=== PATIENT | male | born 1990 | race Asian ===

== ENCOUNTER 2021-10-10 16:56 | Emergency (ER) | payer OTHER ==
[~2021-10-10] VITALS: Ht 175.3 cm; Wt 117.9 kg
[2021-10-10 17:01] VITALS: BP 145/77
--- NOTE | 2021-10-10 17:03 | NUR ---
PT TO WAIT IN LOBBY.
--- NOTE | 2021-10-10 17:19 | NUR ---
31 Y/O MALE C/O PENILE PAIN 03/19 X3DAY. PT STATES +DYSURIA, DENIES HEMATURIA, DENIES DISCHARGE. DENIES FEVER/CHILLS. DENIES N/V. DENIES PMH ALLERGIES: SULFA
--- NOTE | 2021-10-10 18:14 | NUR ---
URINE SAMPLE HANDED TO TRINI ANDRES
--- NOTE | 2021-10-10 18:18 | NUR ---
Jax bonilla in [facility] - 10/10/21 at 1824 by MEDALANIS Female Financial Services Counselor accompanied female patient for PENILE Exam.
[2021-10-10] MEDS ORDERED: LOTC TP (18:19)
[2021-10-10] MEDS ORDERED: PYR100 PO (18:19)
[2021-10-10] MEDS ORDERED: CEPH-588 PO (18:19)
[2021-10-10 18:34] VITALS: BP 136/72
--- NOTE | 2021-10-10 18:34 | NUR ---
Patient discharged with v/s stable. Written and verbal after care instructions given FOR BALANITIS and explained. Patient alert, oriented and verbalized understanding of instructions. Ambulatory with steady gait. All questions addressed prior to discharge. ID band removed. Patient advised to follow up with PMD. Rx of KEFLEX, LOTRIMIN, AND PYRIDIUM given. Patient educated on indication of medication including possible reaction and side effects. Opportunity to ask questions provided and answered.
== END 2021-10-10 18:34 | disposition home or self-care (01) ==
LOC: MED 16:56
DX: N48.1 Balanitis (principal); Z79.899 Other long term (current) drug therapy; Z79.2 Long term (current) use of antibiotics; Z88.2 Allergy status to sulfonamides
CPT/HCPCS: 36415; 81002; 87491; 99283

== ENCOUNTER 2021-10-17 15:55 | Emergency (ER) | payer OTHER ==
[~2021-10-17] VITALS: Ht 180.3 cm; Wt 120.7 kg
[~2021-10-17 15:55] MED LIST: CEPH-588 PO; LOTC TP; PYR100 PO
[2021-10-17 16:00] VITALS: BP 125/82
--- NOTE | 2021-10-17 16:00 | NUR ---
PT TO AWAIT IN LOBBY
--- NOTE | 2021-10-17 16:29 | NUR ---
LAB TO DRAW LABS
[2021-10-17 16:44] LABS: BASOPHILS # (AUTO) 0.1 K/uL (0.00-0.22); BASOPHILS % (AUTO) 1.3 % (0.0-2.0); EOSINOPHILS # (AUTO) 0.1 K/uL (0-0.4); EOSINOPHILS % (AUTO) 2.3 % (0.0-4.0); HEMATOCRIT 43.6 % (36-52); HEMOGLOBIN 15.1 g/dL (12.0-18.0); LYMPHOCYTES % (AUTO) 32.3 % (20.5-51.1); MEAN CORPUSCULAR HEMOGLOBIN 31 pg (27-31); MEAN CORPUSCULAR HGB CONC 35 g/dL (33-37); MEAN CORPUSCULAR VOLUME 89.7 fL (80-94); MONOCYTES # (AUTO) 0.8 K/uL (0.8-1.0); MONOCYTES % (AUTO) 13.3 % (1.7-9.3); NEUTROPHILS # (AUTO) 3.1 K/uL (1.8-7.7); NEUTROPHILS % (AUTO) 50.8 % (42.2-75.2); PLATELET COUNT (AUTO) 185 K/uL (140-450); RED BLOOD CELL COUNT(AUTO) 4.86 MIL/uL (4.20-6.10); RED CELL DISTRIBUTION WIDTH 13.1 % (11.6-13.7); WHITE BLOOD COUNT (AUTO) 6.2 K/uL (4.8-10.8)
[2021-10-17 17:05] LABS: ALBUMIN 4.2 g/dL (3.4-5.0); ANION GAP 12.8 (8-16); CARBON DIOXIDE 29.3 mmol/L (21-32); CREATININE 1.1 mg/dL (0.6-1.3); POTASSIUM 4.1 mmol/L (3.5-5.1); TOTAL BILIRUBIN 0.4 mg/dL (0.0-1.0)
--- NOTE | 2021-10-17 17:08 | NUR ---
PT AMBULATED TO BED 04, STEADY GAIT
--- NOTE | 2021-10-17 17:39 | NUR ---
31/M BIB SELF WITH C/O BLOODY STOOL INTERMITTENTLY X1 MONTH. PATIENT STATES BLOOD HAS INCREASED OVER THE LAST TWO DAYS. PATIENT DENIES ABDOMINAL PAIN, N/V/D, VOMITING OR ANY OTHER COMPLAINTS AT THIS TIME.
[2021-10-17] MEDS ORDERED: DOCU-474 PO (17:40)
[2021-10-17 17:48] VITALS: BP 125/82
--- NOTE | 2021-10-17 17:48 | NUR ---
Patient discharged with v/s stable. Written and verbal after care instructions given and explained. Patient alert, oriented and verbalized understanding of instructions. Ambulatory with steady gait. All questions addressed prior to discharge. ID band removed. Patient advised to follow up with PMD. Rx of DULCOLAX given. Patient educated on indication of medication including possible reaction and side effects. Opportunity to ask questions provided and answered.
== END 2021-10-17 17:48 | disposition home or self-care (01) ==
LOC: MED 15:55
DX: K60.2 Anal fissure, unspecified (principal); K59.00 Constipation, unspecified
CPT/HCPCS: 36415; 80053; 85025; 99283

== ENCOUNTER 2021-11-13 15:29 | Emergency (ER) | payer OTHER ==
[~2021-11-13] VITALS: Ht 175.3 cm; Wt 119.7 kg
[~2021-11-13 15:29] MED LIST changes: +DOCU-474 PO
[2021-11-13 15:34] VITALS: BP 141/95
--- NOTE | 2021-11-13 15:47 | NUR ---
31 Y/O MALE C/O RECTAL BLEEDING X2DAYS. PT STATES HE WAS SEEN HERE FOR SIMILAR SYMPTOMS, TOLD TO EAT MORE FIBER, PRESCRIBED STOOFL SOFTENERS WITH NO RELIEF OF SYMPTOMS. PER PATIENT WHENEVER HE USES THE STOOL SOFTENERS OR HIGH FIBER DIET HE IS PROVIDED WITH RELIEF, BUT THE SYMPTOMS RETURN ONCE HE FINISHES THE COURSE. PT STATED PAIN IS ONLY FELT WHEN HE IS USING THE RESTROOM. BLOOD IS BRIGHT RED. DENIES FEVER/CHILLS. DENIES N/V/D. PMH: ANAL FISSURE ALLERGIES: SULFA
--- NOTE | 2021-11-13 15:52 | NUR ---
PA [facility]ING[facility] AT BEDSIDE EVALUATING PT
--- NOTE | 2021-11-13 16:00 | NUR ---
PT AMBULATED TO RESTROOM WITH STEADY GAIT
[2021-11-13] MEDS ORDERED: KEN.025C TP (16:27)
[2021-11-13] MEDS ORDERED: HYDR25SU91 RC (16:27)
[2021-11-13 16:41] VITALS: BP 132/88
--- NOTE | 2021-11-13 16:43 | NUR ---
Patient discharged with v/s stable. Written and verbal after care instructions given and explained. Patient alert, oriented and verbalized understanding of instructions. Ambulatory with steady gait. All questions addressed prior to discharge. ID band removed. Patient advised to follow up with PMD. Rx of ANUSOL-HC,KENALOG 0.025 given. Patient educated on indication of medication including possible reaction and side effects. Opportunity to ask questions provided and answered.
== END 2021-11-13 16:41 | disposition home or self-care (01) ==
LOC: MED 15:29
DX: N47.1 Phimosis (principal); K62.5 Hemorrhage of anus and rectum; R03.0 Elevated blood-pressure reading, without diagnosis of hypertension; Z88.2 Allergy status to sulfonamides; Z79.899 Other long term (current) drug therapy
CPT/HCPCS: 81002; 99283

== ENCOUNTER 2022-02-28 15:53 | Outpatient (CLI) | payer OTHER ==
[~2022-02-28 15:53] MED LIST changes: +HYDR25SU91 RC; +KEN.025C TP
[2022-02-28 16:15] LABS: BASOPHILS # (AUTO) 0.1 K/uL (0.00-0.22); BASOPHILS % (AUTO) 0.9 % (0.0-2.0); EOSINOPHILS # (AUTO) 0.2 K/uL (0-0.4); EOSINOPHILS % (AUTO) 2.6 % (0.0-4.0); HEMATOCRIT 45.7 % (36-52); HEMOGLOBIN 15.5 g/dL (12.0-18.0); LYMPHOCYTES # (AUTO) 2.1 K/uL (2.0-11.5); LYMPHOCYTES % (AUTO) 27.9 % (20.5-51.1); MEAN CORPUSCULAR HEMOGLOBIN 31 pg (27-31); MEAN CORPUSCULAR HGB CONC 34 g/dL (33-37); MEAN CORPUSCULAR VOLUME 89.8 fL (80-94); MONOCYTES # (AUTO) 0.7 K/uL (0.8-1.0); MONOCYTES % (AUTO) 9.8 % (1.7-9.3); NEUTROPHILS # (AUTO) 4.4 K/uL (1.8-7.7); NEUTROPHILS % (AUTO) 58.8 % (42.2-75.2); PLATELET COUNT (AUTO) 194 K/uL (140-450); RED BLOOD CELL COUNT(AUTO) 5.08 MIL/uL (4.20-6.10); RED CELL DISTRIBUTION WIDTH 13.1 % (11.6-13.7); WHITE BLOOD COUNT (AUTO) 7.4 K/uL (4.8-10.8)
[2022-02-28 16:41] LABS: ALBUMIN 4.4 g/dL (3.4-5.0); ANION GAP 10.3 (8-16); CARBON DIOXIDE 29.6 mmol/L (21-32); CHOL/HDL RATIO 5.1 (1-4.5); POTASSIUM 3.9 mmol/L (3.5-5.1); THYROID STIMULATING HORMONE 1.22 uIU/mL (0.34-3.74); TOTAL BILIRUBIN 0.4 mg/dL (0.0-1.0)
[2022-03-01 19:01] LABS: VITAMIN D, 25-HYDROXY 12.5 ng/mL (32.0 - 100)
== END 2022-02-28 21:02 | disposition home or self-care (01) ==
LOC: MLB 15:53
PROVIDERS: ATTEND Internal Medicine
DX: Z00.01 Encounter for general adult medical examination with abnormal findings (principal)
CPT/HCPCS: 36415; 80053; 82306; 82652; 83036; 84443; 85025